=== PATIENT | male | born 1995 | race Two or more races ===

== ENCOUNTER 2020-09-29 13:30 | Emergency (ER) | payer BC ==
[~2020-09-29] VITALS: Ht 182.9 cm; Wt 65.8 kg
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
[2020-09-29] MEDS ORDERED: LET SOLN TOPICAL 8 ML UDC TP ONE (14:14)
--- NOTE | 2020-09-29 15:00 | NUR ---
wound care done
[2020-09-29] MEDS ORDERED: CEPH-569 PO (15:09)
[2020-09-29] MEDS: LET SOLN TOPICAL 8 ML UDC TP ONE (15:14)
[2020-09-29] MEDS: LIDOCAINE HCL/PF 1% 30 ML VIAL TP ONE (15:15)
[2020-09-29 15:16] VITALS: BP 119/86
--- NOTE | 2020-09-29 15:16 | NUR ---
Patient discharged to home in stable condition. Written and verbal after care instructions given. Patient verbalizes understanding of instruction.
== END 2020-09-29 15:18 | disposition home or self-care (01) ==
LOC: ER 13:33
DX: S61.412A Laceration without foreign body of left hand, initial encounter (principal); W26.0XXA Contact with knife, initial encounter; Y93.89 Activity, other specified; Y92.89 Other specified places as the place of occurrence of the external cause; Y99.8 Other external cause status
CPT/HCPCS: 12002; 99282; J3490

== ENCOUNTER 2020-10-11 22:09 | Emergency (ER) | payer BC ==
[~2020-10-11] VITALS: Ht 182.9 cm; Wt 65.8 kg
[~2020-10-11 22:09] MED LIST: CEPH-569 PO
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
--- NOTE | 2020-10-11 22:35 | NUR ---
Patient discharged to home in stable condition. Written and verbal after care instructions given. Patient verbalizes understanding of instruction. PT ambulatory with a steady gait
[2020-10-11 22:37] VITALS: BP 108/68
== END 2020-10-11 22:35 | disposition home or self-care (01) ==
LOC: ER 22:16
DX: S61.412D Laceration without foreign body of left hand, subsequent encounter (principal); X58.XXXD Exposure to other specified factors, subsequent encounter